=== PATIENT | male | born 1975 | race Caucasian/White ===

== ENCOUNTER → 2020-07-17 | Outpatient (CLI) | payer OTHER ==
[~2020-07-17] MED LIST: ECOTRIN81 MG PO; KEFLEX500 MG PO; LISINOPRIL20 MG PO; PERCOCET 10-321 EACH PO; TENORMIN 50 MG50 MG PO
== END ==
LOC: KOH-I 11:08
DX: M79.642 Pain in left hand (principal); M79.5 Residual foreign body in soft tissue
CPT/HCPCS: 73130